=== PATIENT | female | born 1965 | race African-American/Black ===

== ENCOUNTER 2021-10-24 12:37 | Observation (INO) ==
[2021-10-24 14:31] LABS: Basophils % 0.5 % (0.0-0.8); Eosinophils % 0.7 % (0.00-10.9); Hematocrit 43.2 VOL% (35.7-47.0); Immature Granulocytes % 0.2 %; Immature Granulocytes Absolute 0.01 #; Lymphocytes # 2.1 10*3/uL (1.4-4.0); Lymphocytes % 50.6 % (21.3-54.2); Mean Corpuscular HGB Conc 32.4 GM/DL (32-36); Mean Corpuscular Volume 86.2 FL (87-102); Mean Platelet Volume 11.5 FL (9.6-12.0); Monocytes # 0.2 10*3/uL (0.11-0.8); Monocytes % 5.6 % (1.7-12.7); Neutrophils % 42.4 % (38.7-73.9); Platelet Count 219 T/CUMM (130-400); Red Blood Count 5.01 MC/CUMM (3.8-5.5); Red Cell Distribution Width 13.9 % (9.3-17.3); White Blood Count 4.1 T/CUMM (4-12)
[2021-10-24 14:46] LABS: INR 1.1; PT Patient Result 12.1 SECS (10.5-12.0); Partial Thromboplastin Time 27.7 SECS (23.8-32.1)
[2021-10-24 14:49] LABS: Alanine Aminotransferase 22 U/L (13-56); Alkaline Phosphatase 94 U/L (45-117); Aspartate Amino Transferase 14 U/L (0-37); Bilirubin,Total < 0.39 MG/DL (0.20-1.00); Blood Urea Nitrogen 15 MG/DL (7-18); Calcium 11.1 MG/DL (8.5-10.1); Carbon Dioxide 27 MMOL/L (21-32); Chloride 105 MMOL/L (98-107); Estimated Glom Filtration Rate 111 ML/MIN; Glucose 98 MG/DL (74-106); Osmolality,Calculated 273.8 MOS/KG (273-304); Potassium 3.8 MMOL/L (3.5-5.1); Sodium 137 MMOL/L (136-145); Total Protein 8.8 G/DL (6.4-8.2)
[2021-10-24] MEDS ORDERED: ACETAMINOPHEN 325 MG TABLET PO PRN (19:27)
[2021-10-24] MEDS ORDERED: CALCIUM CARBONATE CHEW 500 MG TABLET PO PRN (19:27)
[2021-10-24] MEDS ORDERED: ONDANSETRON 4 MG/2 ML VIAL IV PRN (19:27)
[2021-10-24] MEDS ORDERED: DOCUSATE SODIUM 100 MG CAPSULE PO PRN (19:27)
[2021-10-24] MEDS ORDERED: ZALEPLON 5 MG CAPSULE PO PRN (19:27)
[2021-10-25 12:50] LABS: Risk Ratio 5.67; VLDL Cholesterol 21.4 MG/DL
[2021-10-25 14:57] VITALS: BP 137/66
== END 2021-10-25 14:40 | disposition home or self-care (01) ==
LOC: N.ED 12:37 → N.EDINP 12:37 → SUATTDRO 19:27 → N.EDINP 10-25 14:40
PROVIDERS: ADMIT Internal Medicine Geriatric Medicine; ATTEND Internal Medicine